=== PATIENT | female | born 1940 | race Caucasian/White ===

== ENCOUNTER 2016-12-25 18:06 | Inpatient (IN) | payer MEDICARE, MEDICAID ==
[~2016-12-25] VITALS: Ht 160 cm; Wt 66.6 kg
[~2016-12-25 18:06] MED LIST: ALBU8.5H3 INH; ALPR0.5T6 PO; AMLO5TAB2 PO; ASPI-496 PO; BECL8.7A5 INH; DIPH25CA61 PO; DOXY100T PO; FAMO20TA7 PO; HYDR-3138 PO; ISOS60TA36 PO; SENN1TAB67 PO; TOLT4CAP PO
[2016-12-25] MEDS ORDERED: LORazepam 2 MG/ML, 1ML IVPush ONE (18:30)
[2016-12-25] MEDS ORDERED: methylPREDNISolone SOD SUCC 125 MG/2 ML IVP ONE (18:30)
[2016-12-25] MEDS ORDERED: SODIUM CHLORIDE 0.9% 1,000ML IVBOLUS ONE (18:30)
[2016-12-25] MEDS ORDERED: SODIUM CHLORIDE FLUSH 10ML SYR IVF ONE (18:30)
[2016-12-25] MEDS ORDERED: methylPREDNISolone SOD SUCC 125 MG/2 ML ONE (18:43)
[2016-12-25 18:58] LABS: ASPARTATE AMINO TRANSFERASE 13 U/L (15-37); BLOOD UREA NITROGEN 13 mg/dL (7-18)
[2016-12-25 19:03] LABS: IS PT STATUS REG ER OR PRE ER? YES
[2016-12-25] MEDS ORDERED: TEMPLATE NON-FORMULARY MED. (Albuterol Sulfate (Proair Hfa) 0 PUFFS) INH SCH (20:00)
[2016-12-25] MEDS ORDERED: POLYETHYLENE GLYCOL 17 GM PACKET PO PRN (20:00)
[2016-12-25] MEDS ORDERED: BISACODYL 10 MG SUPP PR PRN (20:00)
[2016-12-25] MEDS ORDERED: MAGNESIUM SULFATE PMX 2GM/50ML 50 ML IV ONE (20:00)
[2016-12-25] MEDS ORDERED: ACETAMINOPHEN 325 MG TABLET PO PRN (20:00)
[2016-12-25] MEDS ORDERED: ENALAPRILAT 1.25 MG/ML, 2ML IVPush PRN (20:00)
[2016-12-25] MEDS: NICOTINE 7 MG/24 HR PATCH.TD24 TD SCH (20:00)
[2016-12-25] MEDS ORDERED: ONDANSETRON 2MG/ML, 2ML IVPush PRN (20:00)
[2016-12-25] MEDS: ALBUTEROL/IPRATROPIUM 2.5MG/0.5MG, 3 ML NPPB SCH (20:11)
[2016-12-25] MEDS ORDERED: FLUTICASONE FUROATE 200MCG/INH INH SCH (21:00)
[2016-12-25 21:41] VITALS: BP 197/82
[2016-12-25] MEDS: AZITHROMYCIN 500 MG in SODIUM CHLORIDE 0.9% 250 ML IV SCH (22:33)
[2016-12-25] MEDS: SODIUM CHLORIDE FLUSH 10ML SYR IVF SCH (22:40)
[2016-12-25] MEDS: HEPARIN 5,000 UNITS/ML, 1ML SQ SCH (22:50)
[2016-12-25] MEDS: HYDROcodone/APAP 5/325 TABLET PO SCH (22:50)
[2016-12-25] MEDS: methylPREDNISolone SOD SUCC 125 MG/2 ML IVPush SCH (22:51)
[2016-12-26] MEDS: FLUTICASONE FUROATE 200MCG/INH INH SCH ×2 (01:11→08:50)
[2016-12-26] MEDS ORDERED: ALBUTEROL/IPRATROPIUM 2.5MG/0.5MG, 3 ML ONE ×3 (01:53→22:44)
[2016-12-26] MEDS: ALBUTEROL/IPRATROPIUM 2.5MG/0.5MG, 3 ML NPPB SCH ×2 (01:58→09:20)
[2016-12-26 01:59] VITALS: BP 124/78
[2016-12-26] MEDS: HEPARIN 5,000 UNITS/ML, 1ML SQ SCH ×3 (05:54→21:21)
[2016-12-26] MEDS: methylPREDNISolone SOD SUCC 125 MG/2 ML IVPush SCH (05:54)
[2016-12-26 06:07] LABS: ASPARTATE AMINO TRANSFERASE 18 U/L (15-37); BLOOD UREA NITROGEN 14 mg/dL (7-18)
[2016-12-26 06:11] LABS: IS PT STATUS REG ER OR PRE ER? NO
[2016-12-26 08:13] VITALS: BP 150/68
[2016-12-26] MEDS: HYDROcodone/APAP 5/325 TABLET PO SCH ×4 (08:48→21:20)
[2016-12-26] MEDS: AMLODIPINE 5 MG TABLET PO SCH (08:49)
[2016-12-26] MEDS: ASPIRIN 81 MG TABLET EC PO SCH (08:49)
[2016-12-26] MEDS: ISOSORBIDE MONONITRATE ER 60 MG TABLET PO SCH (08:49)
[2016-12-26] MEDS: TOLTERODINE LA 4MG CAP.ER.24H PO SCH (08:50)
[2016-12-26] MEDS: SENNA/DOCUSATE TABLET PO SCH (08:50)
[2016-12-26] MEDS: SODIUM CHLORIDE FLUSH 10ML SYR IVF SCH ×2 (08:51→21:21)
[2016-12-26] MEDS: FAMOTIDINE 20 MG TABLET PO SCH (08:52)
[2016-12-26] MEDS ORDERED: AMLODIPINE 5 MG TABLET PO SCH (09:00)
[2016-12-26 11:25] LABS: IS PT STATUS REG ER OR PRE ER? NO
[2016-12-26 13:43] VITALS: BP 120/70
[2016-12-26] MEDS ORDERED: ALBUTEROL/IPRATROPIUM 2.5MG/0.5MG, 3 ML NPPB SCH ×2 (14:00→16:00)
[2016-12-26 16:19] LABS: IS PT STATUS REG ER OR PRE ER? NO
[2016-12-26] MEDS ORDERED: SODIUM CHLORIDE NASAL SPRAY 45ML BOTTLE NAS PRN (17:30)
[2016-12-26 19:42] VITALS: BP 145/68
[2016-12-26] MEDS: NICOTINE 7 MG/24 HR PATCH.TD24 TD SCH (20:00)
[2016-12-26] MEDS: AZITHROMYCIN 500 MG in SODIUM CHLORIDE 0.9% 250 ML IV SCH (21:21)
[2016-12-27 04:25] VITALS: BP 136/58
[2016-12-27] MEDS: HEPARIN 5,000 UNITS/ML, 1ML SQ SCH ×4 (04:29→20:39)
[2016-12-27] MEDS: HYDROcodone/APAP 5/325 TABLET PO SCH ×3 (09:00→23:00)
[2016-12-27 09:40] VITALS: BP 113/85
[2016-12-27] MEDS: FLUTICASONE FUROATE 200MCG/INH INH SCH (09:58)
[2016-12-27] MEDS: ISOSORBIDE MONONITRATE ER 60 MG TABLET PO SCH (10:33)
[2016-12-27] MEDS: FAMOTIDINE 20 MG TABLET PO SCH (10:33)
[2016-12-27] MEDS: TOLTERODINE LA 4MG CAP.ER.24H PO SCH (10:33)
[2016-12-27] MEDS: ASPIRIN 81 MG TABLET EC PO SCH (10:33)
[2016-12-27] MEDS: SODIUM CHLORIDE FLUSH 10ML SYR IVF SCH ×2 (10:33→20:34)
[2016-12-27] MEDS: AMLODIPINE 5 MG TABLET PO SCH (10:33)
[2016-12-27] MEDS: SENNA/DOCUSATE TABLET PO SCH (10:34)
[2016-12-27] MEDS ORDERED: ALBUTEROL/IPRATROPIUM 2.5MG/0.5MG, 3 ML ONE (12:56)
[2016-12-27 13:45] VITALS: BP 149/66
[2016-12-27] MEDS ORDERED: ENALAPRILAT 1.25 MG/ML, 2ML IVPush PRN (16:00)
[2016-12-27] MEDS ORDERED: POLYETHYLENE GLYCOL 17 GM PACKET PO PRN (16:00)
[2016-12-27] MEDS ORDERED: BISACODYL 10 MG SUPP PR PRN (16:00)
[2016-12-27] MEDS: NICOTINE 7 MG/24 HR PATCH.TD24 TD SCH (20:00)
[2016-12-27 20:21] VITALS: BP 189/82
[2016-12-27] MEDS: AZITHROMYCIN 500 MG in SODIUM CHLORIDE 0.9% 250 ML IV SCH (20:34)
[2016-12-27] MEDS ORDERED: ALBUTEROL/IPRATROPIUM 2.5MG/0.5MG, 3 ML NPPB PRN (21:00)
[2016-12-27] MEDS: ALBUTEROL/IPRATROPIUM 2.5MG/0.5MG, 3 ML NPPB PRN (22:19)
[2016-12-27 23:02] VITALS: BP 163/77
[2016-12-28 02:45] VITALS: BP 120/53
[2016-12-28] MEDS: ACETAMINOPHEN 325 MG TABLET PO PRN ×2 (02:52→15:59)
[2016-12-28] MEDS: HEPARIN 5,000 UNITS/ML, 1ML SQ SCH ×3 (05:00→20:35)
[2016-12-28] MEDS: HYDROcodone/APAP 5/325 TABLET PO SCH ×3 (07:38→22:33)
[2016-12-28] MEDS: ISOSORBIDE MONONITRATE ER 60 MG TABLET PO SCH (07:38)
[2016-12-28] MEDS: FAMOTIDINE 20 MG TABLET PO SCH (07:39)
[2016-12-28] MEDS: ASPIRIN 81 MG TABLET EC PO SCH (07:39)
[2016-12-28] MEDS: AMLODIPINE 5 MG TABLET PO SCH (07:39)
[2016-12-28] MEDS: SENNA/DOCUSATE TABLET PO SCH (07:39)
[2016-12-28] MEDS: TOLTERODINE LA 4MG CAP.ER.24H PO SCH (07:39)
[2016-12-28] MEDS: FLUTICASONE FUROATE 200MCG/INH INH SCH (07:40)
[2016-12-28] MEDS: SODIUM CHLORIDE FLUSH 10ML SYR IVF SCH ×2 (07:40→20:34)
[2016-12-28 07:47] VITALS: BP 171/83
[2016-12-28] MEDS ORDERED: AZIT500T77 PO (13:11)
[2016-12-28 14:00] VITALS: BP 154/69
[2016-12-28] MEDS: CETIRIZINE 10 MG TABLET PO SCH (17:51)
[2016-12-28 19:40] VITALS: BP 180/80
[2016-12-28] MEDS: ALBUTEROL/IPRATROPIUM 2.5MG/0.5MG, 3 ML NPPB PRN (20:25)
[2016-12-28] MEDS: NICOTINE 7 MG/24 HR PATCH.TD24 TD SCH (20:34)
[2016-12-28] MEDS: AZITHROMYCIN 500 MG in SODIUM CHLORIDE 0.9% 250 ML IV SCH (20:34)
[2016-12-28] MEDS: FLUTICASONE NASAL SPRAY 16GM NAS SCH ×2 (20:34→21:15)
[2016-12-28 22:30] VITALS: BP 136/76
[2016-12-29 02:30] VITALS: BP 147/77
[2016-12-29] MEDS: HEPARIN 5,000 UNITS/ML, 1ML SQ SCH ×3 (05:00→21:00)
[2016-12-29] MEDS: FLUTICASONE NASAL SPRAY 16GM NAS SCH ×2 (09:00→21:00)
[2016-12-29] MEDS: SENNA/DOCUSATE TABLET PO SCH (09:00)
[2016-12-29] MEDS: HYDROcodone/APAP 5/325 TABLET PO SCH ×3 (09:07→21:00)
[2016-12-29] MEDS: CETIRIZINE 10 MG TABLET PO SCH (09:07)
[2016-12-29] MEDS: AMLODIPINE 5 MG TABLET PO SCH (09:08)
[2016-12-29] MEDS: FAMOTIDINE 20 MG TABLET PO SCH (09:08)
[2016-12-29] MEDS: TOLTERODINE LA 4MG CAP.ER.24H PO SCH (09:09)
[2016-12-29] MEDS: ASPIRIN 81 MG TABLET EC PO SCH (09:09)
[2016-12-29] MEDS: ISOSORBIDE MONONITRATE ER 60 MG TABLET PO SCH (09:09)
[2016-12-29] MEDS: FLUTICASONE FUROATE 200MCG/INH INH SCH (09:10)
[2016-12-29] MEDS: SODIUM CHLORIDE FLUSH 10ML SYR IVF SCH ×2 (09:10→21:00)
[2016-12-29 14:30] VITALS: BP 128/74
[2016-12-29 19:37] VITALS: BP 156/74
[2016-12-29] MEDS: NICOTINE 7 MG/24 HR PATCH.TD24 TD SCH (20:00)
[2016-12-29] MEDS: AZITHROMYCIN 500 MG in SODIUM CHLORIDE 0.9% 250 ML IV SCH (21:00)
[2016-12-30 01:11] VITALS: BP 141/63
[2016-12-30 03:01] LABS: IS PT STATUS REG ER OR PRE ER? NO
[2016-12-30] MEDS: HEPARIN 5,000 UNITS/ML, 1ML SQ SCH ×3 (05:00→20:18)
[2016-12-30 07:08] VITALS: BP 158/71
[2016-12-30] MEDS ORDERED: REGADENOSON 0.4 MG/5 ML SYRINGE ONE (08:31)
[2016-12-30] MEDS: SODIUM CHLORIDE FLUSH 10ML SYR IVF SCH ×2 (08:32→21:00)
[2016-12-30] MEDS: SENNA/DOCUSATE TABLET PO SCH (09:00)
[2016-12-30] MEDS: FLUTICASONE NASAL SPRAY 16GM NAS SCH ×2 (09:00→20:18)
[2016-12-30] MEDS: ASPIRIN 81 MG TABLET EC PO SCH (10:34)
[2016-12-30] MEDS: ISOSORBIDE MONONITRATE ER 60 MG TABLET PO SCH (10:34)
[2016-12-30] MEDS: FAMOTIDINE 20 MG TABLET PO SCH (10:34)
[2016-12-30] MEDS: CETIRIZINE 10 MG TABLET PO SCH (10:34)
[2016-12-30] MEDS: AMLODIPINE 5 MG TABLET PO SCH (10:34)
[2016-12-30] MEDS: FLUTICASONE FUROATE 200MCG/INH INH SCH (10:34)
[2016-12-30] MEDS: HYDROcodone/APAP 5/325 TABLET PO SCH ×3 (10:34→20:16)
[2016-12-30] MEDS: TOLTERODINE LA 4MG CAP.ER.24H PO SCH (10:34)
[2016-12-30 16:00] VITALS: BP 160/63
[2016-12-30 19:47] VITALS: BP 147/67
[2016-12-30] MEDS: NICOTINE 7 MG/24 HR PATCH.TD24 TD SCH (20:00)
[2016-12-30] MEDS: AZITHROMYCIN 500 MG in SODIUM CHLORIDE 0.9% 250 ML IV SCH (20:18)
[2016-12-31] MEDS ORDERED: LORazepam 2 MG/ML, 1ML IVPush ONE
[2016-12-31 02:00] VITALS: BP 170/78
[2016-12-31] MEDS: HEPARIN 5,000 UNITS/ML, 1ML SQ SCH (05:00)
[2016-12-31] MEDS: HYDROcodone/APAP 5/325 TABLET PO SCH (08:57)
[2016-12-31] MEDS: FAMOTIDINE 20 MG TABLET PO SCH (09:00)
[2016-12-31] MEDS: CETIRIZINE 10 MG TABLET PO SCH (09:00)
[2016-12-31] MEDS: AMLODIPINE 5 MG TABLET PO SCH (09:00)
[2016-12-31] MEDS: ASPIRIN 81 MG TABLET EC PO SCH (09:00)
[2016-12-31] MEDS: ISOSORBIDE MONONITRATE ER 60 MG TABLET PO SCH (09:00)
[2016-12-31] MEDS: SODIUM CHLORIDE FLUSH 10ML SYR IVF SCH (09:00)
[2016-12-31] MEDS: FLUTICASONE NASAL SPRAY 16GM NAS SCH (09:00)
[2016-12-31] MEDS: FLUTICASONE FUROATE 200MCG/INH INH SCH (09:00)
[2016-12-31] MEDS: TOLTERODINE LA 4MG CAP.ER.24H PO SCH (09:00)
[2016-12-31] MEDS: SENNA/DOCUSATE TABLET PO SCH (09:00)
[2016-12-31 09:07] VITALS: BP 113/61
[2016-12-31] MEDS ORDERED: ALBUTEROL/IPRATROPIUM 2.5MG/0.5MG, 3 ML NPPB SCH (11:00)
[2016-12-31] MEDS ORDERED: ALBUTEROL/IPRATROPIUM 2.5MG/0.5MG, 3 ML NPPB PRN (11:30)
[2016-12-31] MEDS ORDERED: LOSA25TA5 PO (11:40)
[2016-12-31] MEDS ORDERED: FLUT16SP NAS (11:40)
[2016-12-31] MEDS ORDERED: AMLO5TAB2 PO (11:40)
[2016-12-31] MEDS ORDERED: PRED5TAB PO (11:40)
[2016-12-31] MEDS ORDERED: ATOR20TA9 PO (11:40)
[2016-12-31] MEDS ORDERED: POLY17PO5 PO (11:40)
[2016-12-31] MEDS ORDERED: CETI10TA18 PO (11:40)
[2016-12-31] MEDS ORDERED: IPRA3AMP NPPB (11:40)
[2016-12-31] MEDS ORDERED: CARV6.252 PO (11:40)
== END 2016-12-31 13:19 | disposition home health service (06) | DRG 291 ==
LOC: ED 19:22 → EDIP 20:00 → 5SO 21:32
PROVIDERS: ATTEND Hospitalist
DX: I11.0 Hypertensive heart disease with heart failure (principal); J96.21 Acute and chronic respiratory failure with hypoxia; J44.1 Chronic obstructive pulmonary disease with (acute) exacerbation; I50.30 Unspecified diastolic (congestive) heart failure; F41.1 Generalized anxiety disorder; E11.9 Type 2 diabetes mellitus without complications; I27.2 Other secondary pulmonary hypertension; I35.1 Nonrheumatic aortic (valve) insufficiency; K21.9 Gastro-esophageal reflux disease without esophagitis; G89.29 Other chronic pain; Z79.82 Long term (current) use of aspirin; Z95.5 Presence of coronary angioplasty implant and graft; Z99.81 Dependence on supplemental oxygen; Z90.49 Acquired absence of other specified parts of digestive tract; Z98.49 Cataract extraction status, unspecified eye; Z79.899 Other long term (current) drug therapy; Z88.2 Allergy status to sulfonamides
CPT/HCPCS: 36415; 71010; 78452; 80053; 83605; 83735; 84132; 84145; 84484; 85025; 87040; 93005; 93017; 93306; 94640; 96361; 96374; J0456; J1644; J2405; J2785; J7620; A9502; C9898; J2060; J2930; J3475; J7030; J7050; J7512

== ENCOUNTER 2018-04-15 12:34 | Observation (INO) | payer MEDICARE, MEDICAID ==
[~2018-04-15] VITALS: Ht 160 cm; Wt 67.7 kg
[~2018-04-15 12:34] MED LIST changes: -ALBU8.5H3 INH; +ALBU8.5H8 INH; -AMLO5TAB2 PO; +AMLO5TAB7 PO; +ATOR20TA9 PO; +AZIT500T5 PO; -BECL8.7A5 INH; +BECL8.7A7 INH; +CARV6.252 PO; +CETI10TA18 PO; +FLUT16SP NAS; -HYDR-3138 PO; +HYDR-3237 PO; +IPRA3AMP30 NPPB; +LOSA25TA6 PO; +POLY17PO5 PO; +PRED5TAB PO
[2018-04-15] MEDS ORDERED: SODIUM CHLORIDE 0.9% 1,000 ML IV ONE (14:22)
[2018-04-15] MEDS ORDERED: PLEASE ENTER HEIGHT AND WEIGHT MC SCH (14:30)
[2018-04-15] MEDS ORDERED: DIPHENHYDRAMINE 50 MG/ML, 1ML IVPush PRN (14:30)
[2018-04-15 14:39] VITALS: BP 172/82
[2018-04-15] MEDS ORDERED: ALBU90AE INH (14:56)
[2018-04-15] MEDS ORDERED: CITA10TA4 PO (14:56)
[2018-04-15] MEDS ORDERED: FENTANYL PF 100 MCG/2ML ONE (15:33)
[2018-04-15] MEDS ORDERED: TICAGRELOR 90 MG TABLET ONE ×2 (15:33→15:34)
[2018-04-15] MEDS ORDERED: MIDAZOLAM 1 MG/ML, 2ML ONE (15:33)
[2018-04-15] MEDS ORDERED: BIVALIRUDIN 250 MG ONE (15:33)
[2018-04-15] MEDS ORDERED: VERAPAMIL 2.5 MG/ML, 2ML ONE (15:33)
[2018-04-15] MEDS ORDERED: HEPARIN 1,000 UNITS/ML, 10ML ONE (15:34)
[2018-04-15] MEDS ORDERED: LIDOCAINE-MPF 1%, 5ML ONE (15:34)
[2018-04-15] MEDS ORDERED: LABETALOL 5MG/ML, 20ML ONE (16:46)
[2018-04-15] MEDS: TEMPLATE NON-FORMULARY MED. (Albuterol Sulfate (Proair Respiclick) 2 PUFFS) INH SCH ×2 (17:30→21:30)
[2018-04-15] MEDS ORDERED: LABETALOL 5MG/ML, 20ML IVPush PRN (17:30)
[2018-04-15] MEDS: HYDROcodone/APAP 5/325 TABLET PO SCH ×2 (17:30→21:06)
[2018-04-15 18:12] VITALS: BP 189/78
[2018-04-15] MEDS ORDERED: AMLODIPINE 5 MG TABLET PO ONE (18:30)
[2018-04-15 20:00] VITALS: BP 184/79
[2018-04-15] MEDS: SODIUM CHLORIDE 0.9% 1,000 ML IV SCH (20:00)
[2018-04-15] MEDS ORDERED: ALBUTEROL SULFATE 2.5 MG/3 ML ONE (20:21)
[2018-04-15] MEDS ORDERED: ALBUTEROL SULFATE 2.5 MG/3 ML NPPB PRN (20:30)
[2018-04-15] MEDS: TEMPLATE NON-FORMULARY MED. (Beclomethasone Dipropionate 80MCG (Qvar 80MCG) 1 PUFF(S)) INH SCH (20:47)
[2018-04-15] MEDS: TICAGRELOR 90 MG TABLET PO SCH (21:06)
[2018-04-16 00:52] VITALS: BP 134/59
[2018-04-16] MEDS: TEMPLATE NON-FORMULARY MED. (Albuterol Sulfate (Proair Respiclick) 2 PUFFS) INH SCH ×6 (01:30→21:17)
[2018-04-16] MEDS: SODIUM CHLORIDE 0.9% 1,000 ML IV SCH (02:18)
[2018-04-16 06:06] LABS: ANION GAP 3 mmol/L (5-15); CALCIUM 8.7 mg/dL (8.5-10.1); CHLORIDE 101 mmol/L (98-107); CREATININE 0.61 mg/dL (0.55-1.02)
[2018-04-16] MEDS ORDERED: ALBUTEROL SULFATE 2.5 MG/3 ML NPPB SCH (07:00)
[2018-04-16 07:40] VITALS: BP 177/86
[2018-04-16] MEDS: AMLODIPINE 10 MG TAB PO SCH (08:44)
[2018-04-16] MEDS: ISOSORBIDE MONONITRATE ER 60 MG TABLET PO SCH (08:44)
[2018-04-16] MEDS: HYDROcodone/APAP 5/325 TABLET PO SCH ×3 (08:45→21:26)
[2018-04-16] MEDS: TICAGRELOR 90 MG TABLET PO SCH ×2 (08:45→21:26)
[2018-04-16] MEDS: ASPIRIN 81 MG TABLET EC PO SCH (08:45)
[2018-04-16] MEDS: CITALOPRAM 10 MG TABLET PO SCH (08:45)
[2018-04-16] MEDS: FLUTICASONE FUROATE 200MCG/INH INH SCH ×2 (08:48→21:17)
[2018-04-16] MEDS: TEMPLATE NON-FORMULARY MED. (Beclomethasone Dipropionate 80MCG (Qvar 80MCG) 1 PUFF(S)) INH SCH ×2 (08:48→21:17)
[2018-04-16] MEDS ORDERED: ASPIRIN 81 MG TABLET EC PO SCH (09:00)
[2018-04-16] MEDS ORDERED: TICA90TA PO (09:29)
[2018-04-16] MEDS ORDERED: LISI-170 PO (11:12)
[2018-04-16] MEDS: LISINOPRIL 20 MG TABLET PO SCH (11:40)
[2018-04-16 13:02] VITALS: BP 122/66
[2018-04-16 18:30] VITALS: BP 155/83
[2018-04-17] MEDS: TEMPLATE NON-FORMULARY MED. (Albuterol Sulfate (Proair Respiclick) 2 PUFFS) INH SCH ×3 (00:06→08:43)
[2018-04-17 01:47] VITALS: BP 137/61
[2018-04-17 06:40] VITALS: BP 156/75
[2018-04-17] MEDS: ASPIRIN 81 MG TABLET EC PO SCH (08:42)
[2018-04-17] MEDS: LISINOPRIL 20 MG TABLET PO SCH (08:42)
[2018-04-17] MEDS: CITALOPRAM 10 MG TABLET PO SCH (08:42)
[2018-04-17] MEDS: AMLODIPINE 10 MG TAB PO SCH (08:43)
[2018-04-17] MEDS: TICAGRELOR 90 MG TABLET PO SCH (08:43)
[2018-04-17] MEDS: HYDROcodone/APAP 5/325 TABLET PO SCH (08:43)
[2018-04-17] MEDS: ISOSORBIDE MONONITRATE ER 60 MG TABLET PO SCH (08:43)
[2018-04-17] MEDS: FLUTICASONE FUROATE 200MCG/INH INH SCH (08:43)
[2018-04-17] MEDS: TEMPLATE NON-FORMULARY MED. (Beclomethasone Dipropionate 80MCG (Qvar 80MCG) 1 PUFF(S)) INH SCH (08:43)
== END 2018-04-17 12:05 | disposition home or self-care (01) ==
LOC: CACL 12:34 → 5SO 17:01 → CACL 17:12 → 5SO 17:12
PROVIDERS: ADMIT Internal Medicine Cardiovascular Disease; ATTEND Internal Medicine Cardiovascular Disease
DX: I25.10 Atherosclerotic heart disease of native coronary artery without angina pectoris (principal); I51.9 Heart disease, unspecified; J44.9 Chronic obstructive pulmonary disease, unspecified; I10 Essential (primary) hypertension; M19.90 Unspecified osteoarthritis, unspecified site; E11.9 Type 2 diabetes mellitus without complications; I70.208 Unspecified atherosclerosis of native arteries of extremities, other extremity
CPT/HCPCS: 36415; 71046; 80048; 85014; 85018; 93454; 94640; 96374; 99156; 99157; C1725; C1769; C1874; C1887; C1894; C9600; G0378; J0583; J1200; J1644; J2250; J3010; J7613; Q9967